=== PATIENT | male | born 1980 | race Caucasian/White ===

== ENCOUNTER 2024-10-03 09:38 | Outpatient (CLI) | payer BC, SELFPAY ==
--- NOTE | ~2024-10-03 | CT_ITS ---
EXAMINATION: CT abdomen pelvis w con DATE: 10/03/2024 10:08 INDICATION: Acute renal failure TECHNIQUE: Computed tomography (CT) of the abdomen and pelvis was performed with 100 cc Omnipaque 350 intravenous contrast. The dose-length product was 1468.83 mGy-cm. Automated exposure control and iterative reconstruction technique were employed. COMPARISON: None. FINDINGS: There is dependent atelectasis. No significant pleural or pericardial effusion. Heart size normal. Fatty infiltration of the liver. The spleen, pancreas, adrenal glands are unremarkable. There is 2 mm nonobstructing right renal stone. There is a subcentimeter left renal cysts. Gallbladder is present. Nonobstructive bowel gas pattern. Normal appendix. Colonic diverticulosis without evidence for diverticulitis. No significant vascular abnormality. No lymphadenopathy. Moderate lumbar spondylosis. IMPRESSION: 1. Fatty infiltration of the liver. 2: Nonobstructing right nephrolithiasis. Reviewed, dictated and finalized at location O.
--- OUTSIDE RECORDS SUMMARY | 2024-10-03 09:53 | XMS_ITS | Continuity of Care Document ---
Author Name [facility] Organization [facility] Care Team Providers Care Manager Instrumentation Name Role Phone [facility] Unavailable Unavailable Problems Combined list of problems from Department of Defense and Veterans Affairs facilities. It does not include entries that were removed or entered in error. 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 Admit sot several sx of respiratory difficulty with mnor activity; also some CP. No finding on exam, but need eval by PMD prior to allowing clearance for RP or AA.Reviewed requirement with patient--pt understands must bring copy of eval by PMD to get signed off. letter given. [facility] routine history and physical Inactive Condition [facility] visit for: services physical Inactive Condition [facility] contact dermatitis due to plants Active Condition [facility] Allergies, Adverse Reactions, Alerts Combined list of allergies from Department of Defense and Veterans Affairs facilities. It does not include entries that were removed or entered in error. Substance Category Reaction Severity Reaction type Status Date Reported Comments Source NO OUTPUT FOR NCID [id number] Drug allergy (disorder) active 10/16/2007 [employer] Immunizations Combined list of available immunizations from the Department of Defense and Veterans Affairs facilities. 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 (MED) complet ed influenza virus vaccine, live, attenuate d, for intranasa l use [facility] influenza virus vaccine, whole virus 2002 [id number] [employer] complet ed influenza virus vaccine, whole virus 12/28/02 Given 0014H-D [facility] influenza virus vaccine, whole virus 0 2002 [id number] 16 [employer] (PWJ) complet ed influenza virus vaccine, whole virus DoD typhoid Vi capsular polysaccharid e vac 2002 [id number] 101 sanofi pasteur complet ed typhoid Vi capsular polysacch aride vac 07/12/02 Given 0014H-D [facility] typhoid Vi capsular polysaccharid e vaccine 0 2002 [id number] 101 Sanofi Pasteur ([facility]) complet ed typhoid Vi capsular polysacch aride vaccine DoD influenza virus vaccine, whole virus 2001 [id number] 16 [facility] complet ed influenza virus vaccine, whole virus 01/22/02 Given 0014H-D [facility] influenza virus vaccine, whole virus 0 2001 [id number] [facility] complet ed influenza virus vaccine, whole virus DoD influenza virus vaccine, whole virus 2001 [id number] 16 sanofi pasteur complet ed influenza virus vaccine, whole virus 02/23/01 Given 0014H-D [facility] influenza virus vaccine, whole virus 0 2001 [id number] 16 Sanofi Pasteur ([facility]) complet ed influenza virus vaccine, whole virus [facility] typhoid vaccine, inactivated 2000 101 complet ed typhoid vaccine, inactivat ed 07/14/00 Given 0014H-D [facility] typhoid Vi capsular polysaccharid e vac 2000 [id number] 101 sanofi pasteur complet ed typhoid Vi capsular polysacch aride vac 07/14/00 Given 0014H-D [facility] typhoid vaccine, parenteral, other than acetone-kille d, dried 0 2000 41 () complet ed typhoid vaccine, parentera l, other than acetone-k illed, dried DoD typhoid Vi capsular polysaccharid e vaccine 0 2000 [id number] 101 Sanofi Pasteur ([facility]) complet ed typhoid Vi capsular polysacch aride vaccine DoD influenza virus vaccine, whole virus 2000 [id number] 16 [facility] complet ed influenza virus vaccine, whole virus 06/28/00 Given 0014H-D [facility] influenza virus vaccine, whole virus 0 2000 [id number] 16 [employer] ([facility]) complet ed influenza virus vaccine, whole virus DoD yellow fever vaccine 1999 37 complet ed yellow fever vaccine 03/25/99 Given 0014H-D [facility] hepatitis A adult vaccine 1999 52 complet ed hepatitis A adult vaccine 03/25/99 Given 0014H-D [facility] yellow fever vaccine 0 1999 37 () complet ed yellow fever vaccine DoD hepatitis A vaccine, adult dosage 2 1999 52 () complet ed hepatitis A vaccine, adult dosage DoD typhoid vaccine, inactivated 1998 101 complet ed typhoid vaccine, inactivat ed 11/04/98 Given 0014H-D [facility] typhoid vaccine, parenteral, other than acetone-kille d, dried 0 1998 41 () complet ed typhoid vaccine, parentera l, other than acetone-k illed, dried DoD hepatitis A adult vaccine 1998 52 complet ed hepatitis A adult vaccine 09/26/98 Given 0014H-D [facility] measles and rubella virus vaccine 1998 04 complet ed measles and rubella virus vaccine 09/26/98 Given 0014H-D [facility] poliovirus vaccine, live, oral 1998 02 complet ed polioviru s vaccine, live, oral 09/26/98 Given 0014H-D [facility] trivalent poliovirus vaccine, live, oral 0 1998 02 () complet ed trivalent polioviru s vaccine, live, oral DoD measles and rubella virus vaccine 0 1998 04 () complet ed measles and rubella virus vaccine [facility] hepatitis A vaccine, adult dosage 1 1998 52 () complet ed hepatitis A vaccine, adult dosage DoD tetanus-dipht h toxoids (Td) adult/adol 1998 09 complet ed tetanus-d iphth toxoids (Td) adult/ado l 09/19/98 Given 0014H-D [facility] tetanus and diphtheria toxoids, adsorbed, preservative free, for adult use (2 Lf of tetanus toxoid and 2 Lf of diphtheria toxoid) 0 1998 09 () complet ed tetanus and diphtheri a toxoids, adsorbed, preservat yue free, for adult use (2 Lf of tetanus toxoid and 2 Lf of diphtheri a toxoid) DoD Encounters Combined list of: 1) Encounters from Department of Veterans Affairs facilities going backup to the last 18 months, not all VA inpatient encounters are included; 2) Encounters from the Department of Defense facilities going backup to 280 months. Location Location Details Encounter Type Encounter Number Reason For Visit Attending Provider ADM Date DC Date Status Disposition Source [employer] OUTPATIENT [id number] [place] [facility] [facility] KVNG PATRICIA 04/03 Released w/o Limitations [employer]([facility] Team B-NonAd ) [employer]([facility]) OUTPATIENT [id number] Miriam brandon abateme nt MIKE Mejia 07/26 Released w/o Limitations [employer](S pace/Mi ssile Medicin e) [employer]([facility]) OUTPATIENT [id number] [facility] ROSSY QUINTERO 06/22 Released w/o Limitations [employer](S pace/Mi ssile Medicin e) [employer]([facility]) OUTPATIENT [id number] [facility] BARBARA Cuevas 10/15 Released with Work/Duty Limitations [employer](S pace/Mi ssile Medicin e) [employer]([facility]) OUTPATIENT [id number] Notes Entered by: SAMUEL FAYE 09 Jul 2011 0948 ------- ------- ------- ------- -- Annual Audiogr am DANITA BROOKS 07/08 Released w/o Limitations [employer]) [employer]([facility] [employer]) OUTPATIENT [id number] Notes Entered by: ALCIRA COVARRUBIAS 10 Jul 2012 0855 ------- ------- ------- ------- -- Annual Air Audiome RAUL Vernon 07/10 Released w/o Limitations [employer]) [employer]([facility]) OUTPATIENT [id number] [employer] employm ent KATLYN Warner 09/04 Released w/o Limitations [employer](S pace/Mi ssile Medicin e) [employer]([facility] C Optometry ) OUTPATIENT [id number] Notes Entered by: Sujit MEHTA 07 Oct 2015 1035 ------- ------- ------- ------- -- *predep loyment ARMAND MEHTA 10/06 Released w/o Limitations [employer]([facility] Optomet ry) [employer]([facility] PCM Team A) OUTPATIENT [id number] Deploym ent SANDRO Valero 10/06 Released w/o Limitations [employer]([facility] PCM Team A) Theater Facility OUTPATIENT [id number] Theater Provider 04/19 Released w/o Limitations Theater Facilit y [employer]([facility] PCM Team A) OUTPATIENT [id number] CIVILMELISSA N ELYSIA 2 - ROUTINE DEIDRE DICK 12/06 Released w/o Limitations [employer]([facility] PCM Team A) [employer]([facility] Public Health Flight) OUTPATIENT [id number] Notes Entered by: GRABIEL MAYO 20 Apr 2017 1005 ------- ------- ------- ------- -- Annual Audiogr am GRABIEL MAYO 04/20 Released w/o Limitations [employer]([facility] Public Health Flight) [employer]([facility] C Pulmonary Lab) OUTPATIENT [id number] occupat NIKA Li 09/21 Released w/o Limitations [employer]([facility] Pulmona ry Lab) [employer]([facility] C Occupatio nal Med Clinic) OUTPATIENT [id number] 339B CARLOS HATHAWAY 10/03 Released w/o Limitations [employer]([facility] Occupat ional Med Clinic) [employer]([facility] C Deploymen t Medicine) OUTPATIENT [id number] Notes Entered by: Scooter SAENZ 03 Nov 2017 1437 ------- ------- ------- ------- -- ELYSIA 3- ) @1500 DESI ALEMAN 11/03 Released w/o Limitations [employer]([facility] Deploym ent Medicin e) [employer]([facility] C Hearing Conservat ion) OUTPATIENT [id number] 6 +STS, MASKING REQUIRE D, AND ASYMMET RICAL HEARING LOSS PRIYANKA FARMER 08/17 Released w/o Limitations [employer]([facility] Hearing Conserv ation) [employer] Pineda ROMERO ([facility])(Bas e Operation al Medicine Clin) OUTPATIENT [id number] 3 Pre-emp loyment /facili ty operati ons special ist/805 .[phone] SCOTT GOODMAN 06/02 Released w/o Limitations [employer] Pineda ROMERO ([facility])(B ase Operati onal Medicin e Clin) Procedures Combined list of: 1) Procedures from Department of Veterans Affairs facilities going back up to thelast 18 months, not all VA non-surgical procedures are included; 2) All procedures from the Department of Defense facilities. Procedure Procedure Type Code Date Perfomer Comments Sourc e No data available for this section 0014H-Da v id [facility] EDUCATION &TRAINING, PATIENT SELF-MGT QUALIFIED, NONPHYSICIAN HEALTH LINEN CONTROLLER USING STDIZED CURRICULUM, [id number] W THE PATIENT (COULD INCL CAREGIVER/FAMILY) EA 30 MIN; INDIVIDUAL PATIENT DoD ADMINISTRATION OF PATIENT-FOCUSED HEALTH RISK ASSESSMENT INSTRUMENT (EG, HEALTH HAZARD APPRAISAL) WITH SCORING AND DOCUMENTATION, PER STANDARDIZED INSTRUMENT DoD PURE TONE AUDIOMETRY (THRESHOLD); AIR ONLY DoD SPIROMETRY, INCLUDING GRAPHIC RECORD, TOTAL AND TIMED VITAL CAPACITY, EXPIRATORY FLOW RATE MEASUREMENT(S), WITH OR WITHOUT MAXIMAL VOLUNTARY VENTILATION DoD PURE TONE AUDIOMETRY (THRESHOLD), AUTOMATED; AIR ONLY DoD NEUROPSYC TSTNG(EG,KELLEY- REITAN NEUROPSYC SEN,MARNI MEMRY SCALES&[place] CARD SORT TST),W QUALIFIED HEALTH CARE PROFSIONAL INTERP&RPT,ADMINIS TERED TURF GROWER,/HR,VERONIQUE HNICIAN DAVID,THERESAE-2-FCE 016 [facility] SCREENING TEST OF VISUAL ACUITY, QUANTITATIVE, BILATERAL 016 [facility] RADIOLOGIC EXAMINATION, CHEST, 2 VIEWS, FRONTAL AND LATERAL; 006 [facility] THERAPEUTIC PROCEDURE, 1 OR MORE AREAS, EACH 15 MINUTES; GAIT TRAINING (INCLUDES STAIR CLIMBING) 004 [facility] KNEE ORTHOSIS (KO), ELASTIC KNEE CAP, PREFABRICATED, INCLUDES FITTING AND ADJUSTMENT 004 [facility] ARTHROCENTESIS, ASPIRATION AND/OR INJECTION, INTERMEDIATE JOINT OR BURSA (EG, TEMPOROMANDIBULAR, ACROMIOCLAVICULAR, WRIST, ELBOW OR ANKLE, OLECRANON BURSA); WITHOUT ULTRASOUND GUIDANCE 002 [facility] PURE TONE AUDIOMETRY (THRESHOLD); AIR ONLY 002 [facility] Threshold Audiogram (Pure Tone) Threshold Audiogram (Pure Tone) [id number] 018 CARLOS HATHAWAY [facility] Spirometry Spirometry 92335 018 ALMA CHAMPAGNE [facility] Threshold Audiogram (Pure Tone) Automated Threshold Audiogram (Pure Tone) Automated [id number] 018 GRABIEL MAYO [facility] Psychometric Neuropsych Testing Battery Admin By Insole [employer] Psychometric Neuropsych Testing Battery Admin By [employer] [id number] 016 YOGESH CHAUHAN [facility] Screening Test Of Visual Acuity, Quantitative, Bilateral Screening Test Of Visual Acuity, Quantitative, Bilateral [id number] ARMAND MEHTA [facility] CXR Posteroanterior And Lateral Views CXR Posteroanterior And Lateral Views 33775 006 MIKE HAZEL Pulmonary Function Tests Pulmonary Function Tests 12512 006 MIKE HAZEL Audiogram (Screening) Audiogram (Screening) 83629 006 MIKE HAZEL Comprehensive Audiometry Comprehensive Audiometry [id number] PRIYANKA FARMER Evoked Otoacoustic Farrah ions Diagnostic Evaluation Evoked Otoacoustic Emissions Diagnostic Evaluation [id number] PRIYANKA FARMER [facility] Tympanometry With Reflex Threshold Measurements Tympanometry With Reflex Threshold Measurements [id number] PRIYANKA FARMER [facility] Patient Counseling Medical Management Individual Patient Patient Counseling Medical Management Individual Patient [id number] PRIYANKA FARMER A 15 min counseling/educa tional session following the [place] Aural Rehabilitation curriculum for patients with auditory complaints was completed. Details can be found at: [email or web address] Emphasis on importance and proper use of hearing protection. [facility] Social History Combined list of available smoking, tobacco, and other social history from Department of [facility] and Veterans [facility] facilities. Social History Type Response Date Comment Sour e Sex Representation Male (finding) 09/10/2018 Un known Organization Sexual Orientation [address] [place] [address] [address] [place] [address] This section is an empty social history section. [facility] Assessment and Plan Combined list of future care activities from Department of Defense and Veterans [facility] facilities (e.g., assessment and plan notes, appointments, orders, and referrals). Additional future care activities may be listed in the Plan of Care section. Result Assessment and Plan Date Source Assessment and Plan No data available fo r this section 10/03/[address] [place] [address] Functional Status Combined list of recent functional and cognitive assessments recorded at Department of Defense and Veterans Affairs (VA).VA Functional [place] Measurement (FIM) Scale: 1 = Total Assistance (Subject = 0% +), 2 = Maximal Assistance (Subject = 25% +), 3 = Moderate Assistance (Subject = 50% +), 4 = Minimal Assistance (Subject = 75% +), 5 = Supervision, 6 = Modified [place] (Device), 7 = Complete [place] (Timely, Safely). Assessment Date/Time Source Assessment Type Assessment Skill Assessment Score Assessment Details No data available for this section
--- OUTSIDE RECORDS SUMMARY | 2024-10-03 09:54 | XMS_ITS | Clinical Summary ---
Author Organization 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 Gender Identity Not on file Sexual Orientation Not on file Plan of Treatment Health Maintenance Due Date Last Done Comments Hepatitis C Virus (HCV) Screening 1979 TdaP Immunization 1979 Hepatitis B Immunization (1 of 3 - 19+ 3-dose series) 1998 Human Papillomavirus (HPV) Immunization (1 - 3-dose SCDM series) 2006 SARS-COV-2 Immunization ( season) 2023 Cologuard 01/22/2024 Colonoscopy 01/22/2024 Colorectal Cancer Screening 01/22/2024 Immunochemical Fecal Occult Blood 01/22/2024 Influenza Immunization (#1) 2024 Respiratory Syncytial Virus (RSV) Immunization (Adult) (1 - 1-dose 75+ series) 2054 Meningococcal Immunization (ACWY) Aged Out No longer eligible based on patient's age to complete this topic Pneumococcal Immunization Combined Aged Out No longer eligible based on patient's age to complete this topic Rotavirus Immunization Aged Out No lo nger eligible based on patient's age to complete this topic
[2024-10-03 10:02] LABS: Estimated Glomerular Filt Rate > 60
== END 2024-10-03 09:39 | disposition home or self-care (01) ==
PROVIDERS: PCP Physician Assistant Medical; Visit Provider Physician Assistant Medical
DX: N17.9 Acute kidney failure, unspecified (principal); K76.0 Fatty (change of) liver, not elsewhere classified; N20.0 Calculus of kidney
CPT/HCPCS: 74177; Q9967

== ENCOUNTER 2024-10-24 01:11 | Day surgery (SDC) | payer BC, SELFPAY ==
[2024-10-11 10:45] VITALS: BMI 34.1
[2024-10-24 10:59] VITALS: BP 137/76; PULSE 84; RESP 18; TEMP 36.1; O2SAT 96; BMI 32.4
[2024-10-24] MEDS: LACTATED RINGERS 1,000 ML 150 ML IV CONT (11:06)
--- NOTE | 2024-10-24 11:27 | P.PNAN_ITS ---
Anes - Initial Pre Proc Eval Procedure: Operation Date: 10/24/24 12:30 Proposed Procedures p EGD & Screening Colonoscopy - Justin Correa MD Date/Time: 10/24/24 11:27 Surgeon: Justin Correa MD Pre Op Diagnosis: Peptic ulcer, site unspecified, unspecified as acu Patient Data Age: 44 Gender: M Height: 1.93 m Weight: 120.8 kg Last Vital Signs Temp 97 F L 10/24/24 10:59 Pulse 84 10/24/24 10:59 Resp 18 10/24/24 10:59 BP 137/76 10/24/24 10:59 Pulse Ox 96 10/24/24 10:59 O2 Del Method Room Air 10/24/24 10:59 Allergies Allergy/AdvReac Type Severity Reaction Status Date / Time No Known Allergies Allergy Verified 10/24/24 10:58 Home Medications ?Medication ?Instructions ?Recorded ?Confirmed ?Type levothyroxine 200 mcg tablet 200 mcg PO DAILY #90 tabs 03/30/24 10/24/24 Rx Lactobacillus rhamnosus-Bifidobac. 1 cap PO .QD #30 ca ps 08/13/24 10/24/24 Rx animalis 3 billion cell capsule (toucanBox) wheat dextrin 5 gram/7.4 gram oral See Rx Instructions PO .QD #248 08/13/24 10/24/24 Rx powder (Benefiber Healthy Shape) grams levothyroxine 25 mcg tablet 25 mcg PO DAILY #90 tabs 0 08/29/24 10/24/24 Rx rosuvastatin 10 mg tablet 10 mg PO DAILY #90 tabs 09/0810/24/24 Rx tirzepatide 36 unit subcut WEEKLY #3 mL 10/04/24 10/11/24 Rx Patient hx anesthesia problems: none Family hx anesthesia problems: none Results Review: All pre-operative results and documents have been reviewed as part of the pre- operative evaluation. [facility] Past Medical History Medical History Hypertriglyceridemia XIOMARA (obstructive sleep apnea) Dyslipidemia Peptic ulcer disease Chronic diarrhea Hypothyroidism Family History Family History Father Hypertension Mother No problems noted. Grandparent Thyroid disease Lung cancer Cancer Social History Social History Smoking status: Never smoker Alcohol intake: current Alcohol use details: rarely Substance use: never Substance use type: does not use Do You Feel Safe in your Home?: Yes Lack of Transportation: No Lack of Food: Never True Current Housing: I Have Housing Concerned About Future Housing: No Difficulty Paying Gas/Electric Bills: No Difficulty Paying for Meds: No Currently Unemployed: No Education: Bachelor's Degree Difficulty w/ Childcare or Family Care: No Living arrangements: with family Occupation/Education: occupation Gender identity (if verbalized by the patient): Male Anes - Eval Final PreProcedure Day of Procedure 10/24/24 11:27 Patient weight: obese Lungs: normal air movement Airway: Mallampati scale class II Neurological: alert and oriented Last oral intake: >/= 8 hours ASA classification: III Emergent: no Anesthetic plan: proceed Anesthesia type and monitoring: general GIVS and standard monitoring Results Review: All pre-operative results and documents have been reviewed as part of the pre- operative evaluation. HTN, hyperlipidemia, XIOMARA on CPAP. 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 l Informed Consent: The patient's anesthetic plan and its attendant risks and benefits were discussed with the patient/family/POA. Questions were solicited and answers provided to the satisfaction of the patient/family/POA.
--- NOTE | 2024-10-24 12:26 | PM.HPGS ---
History of Present Illness History of Present Illness Consent: Risks, benefits, and alternatives have been discussed and questions answered. Patient agrees to proceed with procedure. Chief complaint: Peptic ulcer, site unspecified, unspecified as acu Narrative: Jaciel Fragoso is a 44 year old male here for gerd, also screening colonoscopy- last one 10 years ago Review of Systems Review of Systems: All systems reviewed & are unremarkable except as noted in HPI and below PMFSH Past Medical History Medical History (Updated 10/24/24 @ 12:27 by Justin Correa MD) Colon cancer screening GERD (gastroesophageal reflux disease) Hypertriglyceridemia XIOMARA (obstructive sleep apnea) Dyslipidemia Peptic ulcer disease Chronic diarrhea Hypothyroidism Family History Family History Father Hypertension Mother No problems noted. Grandparent Thyroid disease Lung cancer Cancer Social History Social History Smoking status: Never smoker Alcohol intake: current Alcohol use details: rarely Substance use: never Substance use type: does not use Do You Feel Safe in your Home?: Yes Lack of Transportation: No Lack of Food: Never True Current Housing: I Have Housing Concerned About Future Housing: No Difficulty Paying Gas/Electric Bills: No Difficulty Paying for Meds: No Currently Unemployed: No Education: Bachelor's Degree Difficulty w/ Childcare or Family Care: No Living arrangements: with family Occupation/Education: occupation Gender identity (if verbalized by the patient): Male Meds Home Medications and Allergies Home Medications ?Medication ?Instructions ?Recorded ?Confirmed ?Type levothyroxine 200 mcg tablet 200 mcg PO DAILY #90 tabs 03/30/24 10/24/24 Rx Lactobacillus rhamnosus-Bifidobac. 1 cap PO .QD #30 caps 08/13/24 10/24/24 Rx animalis 3 billion cell capsule (zhouwu) wheat dextrin 5 gram/7.4 gram oral See Rx Instructions PO .QD #248 08/13/24 10/24/24 Rx powder (Benefiber Healthy Shape) grams levothyroxine 25 mcg tablet 25 mcg PO DAILY #90 tabs 08/29/24 10/24/24 Rx rosuvastatin 10 mg tablet 10 mg PO DAILY #90 tabs 10/04/24 10/24/24 Rx tirzepatide 36 unit subcut WEEKLY #3 mL 10/04/24 10/11/24 Rx Allergies Allergy/AdvReac Type Severity Reaction Status Date / Time No Known Allergies Allergy Verified 10/24/24 10:58 Vital Signs Vital Signs - 24 hr 10/24/24 10:59 Temperature 97 F L Pulse Rate 84 Respiratory Rate 18 Blood Pressure 137/76 Pulse Oximetry 96 Oxygen Delivery Room Air Exam Const: General: comfortable and no acute distress HENMT: Face/Nose/Sinus: Normal nares present Eyes: General: appearance normal, both eyes and all related structures Neck: Neck: no JVD Resp: Auscultation: clear to auscultation bilaterally Cardio: Rate: regular rate Rhythm: regular rhythm GI: Inspection: non-distended GI Palp: Yes Soft to palpation Skin: General skin exam: normal color Neuro: Speech: normal speech Extrem: General: normal to inspection Psych: Mental Status: mental status grossly normal Assessment and Plan Assessment and plan (1) GERD (gastroesophageal reflux disease): Code(s): K21.9 - Gastro-esophageal reflux disease without esophagitis Status: Acute Assessment and Plan: egd (2) Colon cancer screening: Code(s): Z12.11 - Encounter for screening for malignant neoplasm of colon Status: Acute Assessment and Plan: colonoscopy
--- NOTE | 2024-10-24 12:37 | SUR.OPER ---
EGD TIME: 4174-9346, COLONOSCOPY TIME 7312-0038
--- NOTE | 2024-10-24 12:38 | S_PTH ---
PATIENT: Jaciel Fragoso LOC: [facility] Muir#:[id number] AGE/SX: 44/M ROOM: RE10/24/[address]: Justin Correa MD : 1980 BED: DIS: 10/24/2024 SPEC #: [id number] RECD: 10/24/24 14:19 STATUS: JOSHUA REQ #: [id number] WALTER: 10/24/24 12:[address]: Justin Correa DEPT: [facility] Surgical RECD BY: Latisha Cerrato ENTERED: 10/24/24 14:19 SP TYPE: Surgical OTHR DR: Dot Churchill PA-C Tissues: A - Gastric Biopsy Procedures: Hematoxylin and Eosin Stain Gross and Microscopic Level 4
[2024-10-24 12:48] VITALS: BP 121/64; PULSE 65; RESP 19; O2SAT 98
[2024-10-24 12:58] VITALS: BP 122/64; PULSE 67; RESP 17; O2SAT 98
[2024-10-24 13:08] VITALS: BP 124/71; PULSE 65; RESP 21; O2SAT 98
== END 2024-10-24 13:17 | disposition home or self-care (01) ==
PROVIDERS: PCP Physician Assistant Medical; Visit Provider Internal Medicine Gastroenterology
PROC: 0DJ08ZZ Inspection of Upper Intestinal Tract, Via Natural or Artificial Opening Endoscopic (ICD-10-PCS; CPT 45378; principal; 2024-10-24 12:30)
DX: Z12.11 Encounter for screening for malignant neoplasm of colon (principal); K64.8 Other hemorrhoids; K57.30 Diverticulosis of large intestine without perforation or abscess without bleeding; K21.9 Gastro-esophageal reflux disease without esophagitis; E78.5 Hyperlipidemia, unspecified; I10 Essential (primary) hypertension; E03.9 Hypothyroidism, unspecified; E78.1 Pure hyperglyceridemia; G47.33 Obstructive sleep apnea (adult) (pediatric); K52.9 Noninfective gastroenteritis and colitis, unspecified; E66.9 Obesity, unspecified; Z68.32 Body mass index [BMI] 32.0-32.9, adult; Z99.89 Dependence on other enabling machines and devices; Z87.11 Personal history of peptic ulcer disease; Z80.1 Family history of malignant neoplasm of trachea, bronchus and lung
CPT/HCPCS: 43239; 45378; 88305; J2704; J7120